=== PATIENT | male | born 1950 | race Caucasian/White ===

== ENCOUNTER 2022-09-06 16:35 | Emergency (ER) | payer MEDICARE, SELFPAY ==
[2022-09-06 17:16] VITALS: BP 149/88; PULSE 76; RESP 16; TEMP 36.8; O2SAT 100
--- NOTE | 2022-09-06 17:19 | PC.NURSE ---
Leg bag completely full of red colored urine and noted to be disconnected from the catheter. New leg bag placed. Draining urine appropriately. Patient denies pain.
--- NOTE | 2022-09-06 17:41 | PC.NURSE ---
Dr. Villarreal at bedside to assess pt.
--- NOTE | 2022-09-06 17:45 | ED.GENADULT ---
HPI - General Adult General Chief complaint: Urogenital-Male Stated complaint: HEMATURIA, CATHETER IN PLACE Time Seen by Provider: 09/06/22 17:45 Source: patient and RN notes reviewed Mode of arrival: ambulatory Limitations: no limitations History of Present Illness HPI narrative: 72 years old white female came to the hospital by private car complaining of his Deleon catheter tube got dislodged from the bag also the blood in the bag is pinkish. Patient had Deleon catheter placement today 4 hours ago, for urine incontinence for months. Patient does not know the name of the doctor. He denies any fever, chills, nausea, vomiting, abdominal pain, back pain, shortness of breath or chest pain. Review of Systems Review of Systems: All systems reviewed & are unremarkable except as noted in HPI and below Exam Narrative: General appearance: Well-developed, well-nourished Skin: Normal color Chest and respiratory: Airway patent, no respiratory distress, no accessory muscle use Heart: Regular rate/rhythm Abdomen: Soft, nontender, no organomegaly, quiet bowel sounds. The Deleon catheter bag containing pink urine, and the tube was connected by the nurse before my evaluation. Urine flowing okay. Neurologic: Alert and oriented ?3, Course Reevaluation(s) Reevaluation #1: At the time of discharge patient reported that he blacked out at home. Lives alone. He said was laying down in bed, and stood and then collapsed on the floor for unknown duration. Which could be the underlying cause of dislodging the Deleon catheter tube from the bag. There is a possibility that patient got vasovagal when his parents got with from the dislodged Deleon catheter and looking at his bag and had blood in it probably triggered a vasovagal syncope I did explain in length that my plan to run blood work-up, scan his head and high likely will be admitted overnight for observation. Later patient declined any further evaluation and he reported that his brother is going to stay with him overnight and he would like to go home. Patient signed AMA. I declare that I have personally explained to the patient the risks and consequences involved in leaving this facility at this time. the benefits of continued treatment and/or hospitalization. And the alternatives. If any. to continued treatment and/or hospitalization. if applicable.I have not identified any psychosis, drugs, mental illness, or medical illness that alters decision-making capacity (reasoning abilities ). Date: 09/06/22 Time: 18:51 Vital Signs Vital signs: Vital Signs Temperature 36.8 C 09/06/22 17:16 Pulse Rate 76 09/06/22 17:16 Respiratory Rate 16 09/06/22 17:16 Blood Pressure 149/88 H 09/06/22 17:16 Pulse Oximetry 100 09/06/22 17:16 Temperature 36.8 C 09/06/22 17:16 Pulse Rate 76 09/06/22 17:16 Respiratory Rate 16 09/06/22 17:16 Blood Pressure 149/88 H 09/06/22 17:16 Pulse Oximetry 100 09/06/22 17:16 Medical Decision Making Vital Signs Vital Signs: Vital Signs Temperature 36.8 C 09/06/22 17:16 Pulse Rate 76 09/06/22 17:16 Respiratory Rate 16 09/06/22 17:16 Blood Pressure 149/88 H 09/06/22 17:16 Pulse Oximetry 100 09/06/22 17:16 Temperature 36.8 C 09/06/22 17:16 Pulse Rate 76 09/06/22 17:16 Respiratory Rate 16 09/06/22 17:16 Blood Pressure 149/88 H 09/06/22 17:16 Pulse Oximetry 100 09/06/22 17:16 Lab Data Labs: Urine Characteristics Clear Critical Care Time Critical Care Time Critical Care Time: Yes Total Critical Care Time: 20 Discharge Plan Discharge Clinical Impression: Syn
--- NOTE | 2022-09-06 18:42 | PC.NURSE ---
Patient left AMA. Risks of leaving reviewed and patient verbalized understanding. Dr. Villarreal and freelance copywriter Kelly aware. Urinary catheter care discussed with patient in length.
== END 2022-09-06 18:45 | disposition left against medical advice (07) ==
LOC: ANHED 18:18
PROVIDERS: Emergency Provider Emergency Medicine
DX: T83.021A Displacement of indwelling urethral catheter, initial encounter (principal); R55 Syncope and collapse; Y84.6 Urinary catheterization as the cause of abnormal reaction of the patient, or of later complication, without mention of misadventure at the time of the procedure
CPT/HCPCS: 99283

== ENCOUNTER 2023-06-12 11:25 | Emergency (ER) | payer MEDICARE, SELFPAY ==
[2023-06-12] VITALS (26 sets, daily range): BP systolic 137–164; BP diastolic 73–88; PULSE 63–91; RESP 15–27; TEMP 36.8; O2SAT 99–100
--- NOTE | ~2023-06-12 | CT_ITS ---
EXAMINATION: CT brain wo con DATE: 06/12/2023 14:59 INDICATION: Dizziness. Confusion. TECHNIQUE: Computed tomography (CT) of the head was performed without intravenous contrast. The mA wa s adjusted according to patient size. Iterative reconstruction technique was employed. The dose-lengt h product was 605.33 mGy-cm. COMPARISON: None FINDINGS: There are scattered areas of low attenuation in the cerebral white matter, which is within normal limits for the patient's age. There is an infarct in left parietal lobe. No intracranial hemor rhage or abnormal mass lesion. The ventricles are normal in size. The orbits are normal. There is mil d mucosal thickening in the paranasal sinuses. The mastoid air cells are normal. There is cerumen in right external auditory canal. IMPRESSION: 1. Age-indeterminate infarct in left parietal lobe. Reviewed, dictated and finalized at location A.
--- NOTE | ~2023-06-12 | XR_ITS ---
EXAMINATION: XR chest 1V 06/12/2023 15:06 INDICATION: Wheezing. Dizziness. Confusion. PROCEDURE: AP view of the chest COMPARISON: No prior studies for comparison. FINDINGS: The lungs are clear. The cardiomediastinal silhouette is within normal limits. There are no pleural effusions. There is no pneumothorax suspected. IMPRESSION: 1: NO ACUTE CARDIOPULMONARY DISEASE. Reviewed, dictated and finalized at location B.
--- NOTE | 2023-06-12 11:40 | ECG_ITS ---
Measurements Intervals Marquez Rate: 71 P: 69 WV: 141 QRS: 56 QRSD: 103 T: 47 QT: 397 QTc: 433 Interpretive Statements SINUS RHYTHM BASELINE ARTIFACT- I, II, AVR, AVL NORMAL ECG NO PREVIOUS ECG AVAILABLE FOR COMPARISON Electronically Signed On 06-12-2023 12:01:58 CDT by Tony Dean D.O.
[2023-06-12 12:05] LABS: Basophils Percent Auto 0.5 % (0.2-1.2); Eosinophils Absolute Auto 0.1 K/mm3 (0-0.3); Eosinophils Percent Auto 1.9 % (0-4.4); Hematocrit 35.1 % (42.0-52.0); Immature Granulocyte Absolute 0.03 K/mm3 (0.00-0.031); Immature Granulocyte Percent A 0.5 % (0-0.5); Lymphocytes Absolute Auto 1.44 K/mm3 (0.9-3.2); Lymphocytes Percent Auto 22.4 % (18.3-44.2); Mean Corpuscular HGB Conc 31.3 g/dl (32-36); Mean Corpuscular Hemoglobin 30.8 pg (26-34); Mean Corpuscular Volume 98.3 fl (80-100); Mean Platelet Volume 9.4 fl (7.4-10.4); Monocytes Absolute Auto 0.5 K/mm3 (0.1-0.6); Monocytes Percent Auto 8.2 % (2.6-8.5); Neutrophils Absolute Auto 4.3 K/mm3 (1.3-6.7); Neutrophils Percent Auto 66.5 % (45.5-73.1); Platelet Count Result 408 k/mm3 (150-375); Red Blood Count 3.57 M/mm3 (4.6-6.20); White Blood Count 6.4 K/mm3 (4.5-10.0)
[2023-06-12 12:16] LABS: Alanine Aminotransferase 14 U/L (6-50); Albumin Level 3.7 g/dL (3.5-5.1); Alkaline Phosphatase 100 U/L (38-126); Anion Gap 2 mmol/L (8-16); Aspartate Amino Transferase 20 U/L (17-59); Bilirubin,Total 0.5 mg/dL (0.2-1.3); Blood Urea Nitrogen 18 mg/dL (9-20); Calcium 8.5 mg/dL (8.4-10.2); Carbon Dioxide 30 mmol/L (22-30); Chloride 106 mmol/L (98-107); Estimated CRCL calculation 50 ml/min; Estimated Glomerular Filt Rate 58; Glucose 134 mg/dL (65-110); Potassium 4.3 mmol/L (3.4-5.0); Sodium 138 mmol/L (137-145)
--- NOTE | 2023-06-12 14:23 | ED.SYNCOPE ---
HPI - Syncope General Chief Complaint: Syncope Stated Complaint: Balance problems and hernia Time Seen by Provider: 06/12/23 13:20 History of Present Illness HPI narrative: Patient is a 73-year-old male with a history of hypertension, hyperlipidemia presenting with confusion x1 year. Patient's brother is at bedside and assists with the history. Since like the patient has been complaining of intermittent confusion, ataxia for about a year to a year and a half. They state that it has been gradually worsening. He complains of intermittent urinary incontinence and states that it is sometimes difficult to start his flow. He denies any pain. Denies any acute worsening of his symptoms. Patient's brother states that he recently moved back to the area to be close to family to have help with his care. Patient denies any current complaints Related Data Allergies Allergy/AdvReac Type Severity Reaction Status Date / Time No Known Allergies Allergy Verified 06/12/23 12:19 Review of Systems Review of Systems: All systems reviewed & are unremarkable except as noted in HPI and below Exam Narrative: GENERAL: Well-appearing and in no acute distress. Pleasant and cooperative HEAD: Normocephalic, atraumatic. EYES: PERRLA and EOMI. ENT: Nares clear, no rhinorrhea or epistaxis. Mucous membranes moist. NECK: Supple. CHEST: Clear to auscultation. No respiratory distress. HEART: Regular rate and rhythm ABDOMEN: Soft, nontender, nondistended EXTREMITIES: Normal range of motion. No edema. SKIN: Warm, dry, no rash. NEURO: Alert and oriented x3. No focal gross sensory or motor deficits PSYCH: Normal mood and affect. Course Vital Signs Vital signs: Vital Signs Temperature 98.2 F 06/12/23 11:41 Pulse Rate 80 06/12/23 11:41 Respiratory Rate 20 06/12/23 11:41 Blood Pressure 149/76 H 06/12/23 11:41 Pulse Oximetry 100 06/12/23 11:41 Temperature 98.2 F 06/12/23 11:53 Pulse Rate 79 06/12/23 16:42 Respiratory Rate 20 06/12/23 16:42 Blood Pressure 146/81 H 06/12/23 16:42 Pulse Oximetry 99 06/12/23 16:42 MDM - Syncope MDM Narrative Medical decision making narrative: Patient is a 73-year-old male presenting with 1 to 2 years of confusion, lightheadedness, balance problems. Vitals are stable. Exam remarkable for the above. EKG per my interpretation shows normal sinus rhythm, normal axis and intervals, no ST elevations or depressions. Blood work unremarkable. UA concerning for UTI. CT brain without acute abnormalities. 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 His symptoms do not really fit with this, do not suspect this is related to his ongoing symptoms. Feel he is safe for outpatient management with oral antibiotics for his UTI. Feel he would benefit from close PCP and neurology follow-up. Discussed this with the patient and his brother and they are agreeable with this plan. Appropriate return precautions given. Discharged in stable condition. Differential Diagnosis Differential diagnosis: Likely dehydration and other (NPH, confusion, ataxia, UTI, BETSY) Medical Records Attestation: I reviewed the patient's medical records. Lab Data Attestation: I reviewed the patient's lab results. 06/12/23 11:57 06/12/23 11:57 Labs: Lab Results 06/12/23 06/12/23 Range/Units 11:57 14:45 WBC 6.4 (4.5-10.0) K/mm3 RBC 3.57 L (4.6-6.20) M/mm3 Hgb 11.0 L (14.0-18.0) g/dL Hct 35.1 L (42.0-52.0) % MCV 98.3 (80-100) fl MCH 30.8 (26-34) pg MCHC 31.3 L (32-36) g/dl RDW 13.0 (11.5-14.5) % Plt Count 408 H (150-375) k/mm3 MPV 9.4 (7.4-10.4) fl Immature Gran % (Auto) 0.5 (0-0.5) % Neut % (Auto) 66.5 (45.5-73.1) % Lymph % (Auto) 22.4 (18.3-44.2) % [place] % (Auto) 8.2 (2.6-8.5) % Eos % (Auto) 1.9 (0-4.4) % Baso % (Auto) 0.5 (0.2-1.2) % Lymph # (Auto) 1.44 (0.9-3.2) K/mm3 [place] # (Auto) 0.5 (0.1-0.6) K/mm3 Eo
[2023-06-12 14:59] LABS: Appearance Urine Turbid (Clear); Bacteria Urine 4+ /hpf; Bilirubin Urine Negative (Negative); Blood Urine 1+ (Negative); Color Urine Yellow (Yellow); Glucose Urine UA Negative (Negative); Ketones Urine Negative (Negative); Leukocyte Esterase Ur 3+ LEU/UL (Negative); Nitrate Urine Negative (Negative); Non Pathogenic Casts 0-2; Protein Urine Trace mg/dL (Negative); RBC Urine 0-2 /hpf (0-2); Specific Grav Ur 1.014 (1.001-1.035); Squamous Epithelial Cell Urine None seen /hpf (Few); WBC Urine >100 /hpf; pH Urine 6.5 (5.0-9.0)
[2023-06-12] MEDS: SODIUM CHLORIDE 0.9% IV 1,000 ML 999 ML IV CONT (15:07)
[2023-06-12 15:08] LABS: Add Urine Microscopic? YES
[2023-06-12] MEDS: CEPHALEXIN 500 MG CAPSULE PO (15:51)
== END 2023-06-12 17:04 | disposition home or self-care (01) ==
PROVIDERS: Emergency Medicine; Emergency Provider Emergency Medicine
DX: N39.0 Urinary tract infection, site not specified (principal); E86.0 Dehydration; R41.0 Disorientation, unspecified; I10 Essential (primary) hypertension; E78.5 Hyperlipidemia, unspecified
CPT/HCPCS: 36415; 70450; 71045; 80053; 81001; 85025; 87077; 87086; 87186; 93005; 96360; 99284; A9270; J7030